=== PATIENT | male | born 1940 | race Hispanic/Latino ===

== ENCOUNTER → 2018-06-14 | Outpatient (CLI) | payer MEDICARE ==
[~2018-06-14] MED LIST: ATOR40TA71 PO; DOCU100T9 PO; FISH1CAP PO; METO50TA18 PO; NAPR-1023 PO; NIFE90TA38 PO
== END | disposition home or self-care (01) ==
LOC: RAH 09:00
PROVIDERS: ATTEND Orthopaedic Surgery
DX: M25.461 Effusion, right knee (principal); M23.91 Unspecified internal derangement of right knee
CPT/HCPCS: 73721